=== PATIENT | female | born 1955 | race Caucasian/White ===

== ENCOUNTER 2017-01-16 09:56 | Day surgery (SDC) | payer BC ==
[~2017-01-16] VITALS: Ht 149.9 cm; Wt 50.6 kg
[2017-01-16] MEDS ORDERED: LANTUS INSULIN (11:27)
[2017-01-16] MEDS ORDERED: ALBUTEROL (11:27)
[2017-01-16] MEDS ORDERED: METFORMIN (11:27)
[2017-01-16] MEDS ORDERED: JANUVIA (11:27)
[2017-01-16] MEDS ORDERED: BENAZEPRIL (11:27)
[2017-01-16] MEDS ORDERED: ZANTAC (11:27)
[2017-01-16] MEDS ORDERED: LIPITOR (11:27)
[2017-01-16] MEDS ORDERED: SYNTHROID (11:27)
[2017-01-16 11:28] VITALS: Ht 149.9 cm; Wt 50.6 kg
[2017-01-16] MEDS ORDERED: PROPOFOL 20 ML ONE (11:34)
[2017-01-16] MEDS ORDERED: MIDAZOLAM 1 MG/ML 2 ML INJ ONE (11:35)
[2017-01-16] MEDS ORDERED: FENTAnyl 50 MCG/ML VIAL ONE (11:35)
--- NOTE | 2017-01-16 11:59 | OPPN ---
Date/Time of Note Date/Time of Note DATE: 01/16/17 TIME: 11:57 Operative Report Preoperative Diagnosis Positive occult blood in stool Postoperative Diagnosis Internal hemorrhoids 2 small right colon polyps removed Operation/Procedure Performed Colonoscopy and biopsy Provider: ANTWAN MOTT MD Anesthesia Type: MAC Estimated blood loss: none Transfusion Required: no Specimens Colon polyp biopsy Grafts/Implants: none Complications: no ANTWAN MOTT MD Jan 16, 2017 11:59
[2017-01-16 12:27] VITALS: BP 116/69; PULSE 66; RESP 13
--- NOTE | 2017-01-16 12:44 | GILP ---
DATE OF PROCEDURE: 01/16/2017 PROCEDURE PERFORMED: Colonoscopy and biopsy. SURGEON: Alfie Michael MD. PREOPERATIVE DIAGNOSIS: Positive occult blood in stool. POSTOP DIAGNOSES: 1. Colonoscopy all the way to the cecum. 2. Two small right colon polyps were removed using the biopsy forceps. 3. Internal hemorrhoids. INDICATION: Ms. Yudy Hunter is a 62-year-old female patient who was noted to have positive occult blood in stool. The patient was scheduled for colonoscopy for further evaluation. The procedure and possible complications were well explained to the patient. She understood and consented to the procedure. DESCRIPTION OF PROCEDURE: Under influence of anesthesia, the colonoscope was carefully introduced in the rectum, and under direct vision, it was advanced all the way to the cecum. FINDINGS: The patient had 2 small right colon polyps and they were removed using the biopsy forceps. She had internal hemorrhoids. She tolerated the procedure very well. There was no complication from the procedure. At the end of the procedure, she was awake with stable vital signs and she was discharged home in the care of her family. IMPRESSION: Please see postop diagnoses. PLAN: 1. Await histopathology report. 2. Next screening colonoscopy in 5 years. Dictated By: MD SAGAR Clayton/dayami/kassy /Document#: [id number]
== END 2017-01-16 15:20 | disposition home or self-care (01) ==
LOC: GIL 09:56
PROVIDERS: ATTEND Internal Medicine Gastroenterology
DX: K63.5 Polyp of colon (principal); K64.8 Other hemorrhoids; R19.5 Other fecal abnormalities; J45.909 Unspecified asthma, uncomplicated; E11.9 Type 2 diabetes mellitus without complications; I10 Essential (primary) hypertension; E03.9 Hypothyroidism, unspecified; Z88.6 Allergy status to analgesic agent; Z88.2 Allergy status to sulfonamides
CPT/HCPCS: 45380; 82962; 88305; J2250; J3010; Z7610